=== PATIENT | female | born 1975 | race Caucasian/White ===

== ENCOUNTER → 2018-09-25 | Outpatient (CLI) | payer BC ==
[~2018-09-25] MED LIST: CYCL-97; LORA10TA2; TRM50T; ZOLP10TA
== END ==
LOC: CARD 08:41
PROVIDERS: ATTEND Family Medicine
DX: I10 Essential (primary) hypertension (principal)
CPT/HCPCS: 93306

== ENCOUNTER → 2018-09-25 | Outpatient (CLI) | payer BC ==
--- NOTE | 2018-09-25 09:38 | Diagnostic Imaging Report ---
INDICATION: Foreign body granuloma left arm 3 views of the left elbow show a 7 mm length needle fragment in the soft tissues anterior to the distal humerus. This appears be in the subcutaneous fat. On the oblique view, it is 13 mm from the skin surface. IMPRESSION: There is a small needle tip in the soft tissues on the ventral aspect of the left arm just above the elbow. Dictated by: Dictated on workstation # [id number]
== END ==
LOC: RAD 08:43
PROVIDERS: ATTEND Surgery
DX: M60.222 Foreign body granuloma of soft tissue, not elsewhere classified, left upper arm (principal); Z18.9 Retained foreign body fragments, unspecified material
CPT/HCPCS: 73080

== ENCOUNTER 2018-10-28 12:37 | Emergency (ER) | payer BC | END 2018-10-28 14:15 | disposition home or self-care (01) | LOC: ER 12:37 ==

== ENCOUNTER 2018-12-19 05:46 | Outpatient (CLI) | payer BC ==
[~2018-12-19] VITALS: Ht 172.7 cm; Wt 77.6 kg
[~2018-12-19 05:46] MED LIST changes: +CEFU250T80 PO
[2018-12-19] MEDS ORDERED: LISI1TAB8 PO (14:27)
[2018-12-19] MEDS ORDERED: CYCL10TA9 PO (14:27)
== END 2018-12-19 14:45 | disposition home or self-care (01) ==
LOC: PREOP 05:46
PROVIDERS: ATTEND Obstetrics & Gynecology
DX: Z01.818 Encounter for other preprocedural examination (principal)

== ENCOUNTER 2018-12-21 08:38 | Day surgery (SDC) | payer BC ==
[~2018-12-21] VITALS: Ht 172.7 cm; Wt 77.6 kg
[2018-12-21] VITALS (10 sets, daily range): BP systolic 103–127; BP diastolic 58–85
[~2018-12-21 08:38] MED LIST changes: +CYCL10TA9 PO; +LISI1TAB8 PO
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
--- OUTSIDE RECORDS SUMMARY | 2018-12-21 08:44 | XMS REPORT | Continuity of Care Document ---
Author Organization Unknown Address Unknown Allergies Active Description Code Type Severity Reaction Onset Reported/Identified Relationship to Patient Clinical Status Yes paliperidone [id number] Drug Allergy Mild N/A 10/28/2018 Yes Penicillins [id number] Drug Allergy Mild N/A 10/28/2018 Yes paliperidone [id number] Drug Allergy Severe SWELLING OF THE 12/19/2018 Yes Penicillins [id number] Drug Allergy Severe ANAPHYLAXIS 12/19/2018 Medications There is no data. 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, N 10/09/2018 SHEILA PATTEN, CALVIN B Ot 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.9 RETAINED FOREIGN BODY FRAGMENTS, UNSPECI 10/28/2018 NARCISO MURPHY APRN Ot N39.0 URINARY TRACT INFECTION, SITE NOT SPECIF 10/28/2018 NARCISO MURPHY APRN Ot R10.31 RIGHT LOWER QUADRANT PAIN 10/28/2018 NARCISO MURPHY APRN Ot Z80.0 FAMILY HISTORY OF MALIGNANT NEOPLASM OF 10/28/2018 NARCISO MURPHY APRN Ot Z88.8 ALLERGY STATUS TO [facility] DRUG/MEDS/BIOL SUB 11/02/2018 NARCISO MURPHY APRN Ot N39.0 URINARY TRACT INFECTION, SITE NOT SPECIF 11/02/2018 NARCISO MURPHY APRN Ot R10.31 RIGHT LOWER QUADRANT PAIN 11/02/2018 NARCISO MURPHY SALES SUPPORT REP Ot Z80.0 FAMILY HISTORY OF MALIGNANT NEOPLASM OF 11/02/2018 NARCISO MURPHY SALES SUPPORT REP Ot Z88.8 ALLERGY STATUS TO [facility] DRUG/MEDS/BIOL SUB 12/19/2018 CASTILLODAMIEN GARZA DO S Ot Z01.818 ENCOUNTER FOR OTHER PREPROCEDURAL EXAMIN 12/20/2018 CASTILLODAMIEN GARZA DO Ot Z01.818 ENCOUNTER FOR OTHER PREPROCEDURAL EXAMIN 12/20/2018 LUIS M CANTU, RBOOKE Lema Ot I10 ESSENTIAL (PRIMARY) HYPERTENSION 12/20/2018 CALVIN SOSA DO Ot 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 Results Test Result Range LIPID PANEL - 08/25/18 10:29 CHOLESTEROL, TOTAL 184 mg/dL <200 HDL CHOLESTEROL 55 mg/dL >50 TRIGLYCERIDES 66 mg/dL <150 LDL-CHOLESTEROL 114 mg/dL (calc) NRG CHOL/HDLC RATIO 3.3 (calc) <5.0 NON HDL CHOLESTEROL 129 mg/dL (calc) <130 CMP - 08/25/18 10:29 GLUCOSE 87 mg/dL 65-99 UREA NITROGEN (BUN) 13 mg/dL 7-25 CREATININE 0.67 mg/dL 0.50-1.10 eGFR NON-AFR. BOTSWANAN 109 mL/min/1.73m2 > OR=60 eGFR 127 mL/min/1.73m2 > OR=60 BUN/CREATININE RATIO NOT APPLICABLE (calc) 6-22 SODIUM 139 mmol/L 135-146 POTASSIUM 4.7 mmol/L 3.5-5.3 CHLORIDE 103 mmol/L 98-110 CARBON DIOXIDE 29 mmol/L 20-32 CALCIUM 9.9 mg/dL 8.6-10.2 PROTEIN, TOTAL 7.4 g/dL 6.1-8.1 ALBUMIN 5.0 g/dL 3.6-5.1 GLOBULIN 2.4 g/dL (calc) 1.9-3.7 ALBUMIN/GLOBULIN RATIO 2.1 (calc) 1.0-2.5 BILIRUBIN, TOTAL 1.1 mg/dL 0.2-1.2 ALKALINE PHOSPHATASE 55 U/L 33-115 AST 19 U/L 10-30 ALT 12 U/L 6-29 TSH - 08/25/18 10:29 TSH 1.47 mIU/L NR HEP C PCR QUANT (Graph)-APPROVAL REQUIRED - 08/25/18 10:29 HCV RNA, QUANTITATIVE REAL TIME PCR <15 NOT DETECTED IU/mL NOT DETECTED HCV RNA, QUANTITATIVE REAL TIME PCR <1.18 NOT DETECTED Log IU/mL NOT DETECTED BMP - 09/14/18 14:16 GLUCOSE 80 mg/dL 65-99 UREA NITROGEN (BUN) 14 mg/dL 7-25 CREATININE 0.74 mg/dL 0.50-1.10 eGFR NON-AFR. BOTSWANAN 101 mL/min/1.73m2 > OR=60 eGFR 117 mL/min/1.73m2 > OR=60 BUN/CREATININE RATIO NOT APPLICABLE (calc) 6-22 SODIUM 134 mmol/L 135-146 POTASSIUM 4.1 mmol/L 3.5-5.3 CHLORIDE 99 mmol/L 98-110 CARBON DIOXIDE 28 mmol/L 20-32 CALCIUM 9.9 mg/dL 8.6-10.2 CULTURE, GENITAL - 10/10/18 09:23 CULTURE, GENITAL SEE NOTE NR SUREPATH PAP AND HPV mRNA E6/E7 - 10/10/18 09:23 CLINICAL INFORMATION: [facility] LMP: 10/01/2018 NRG PREV. PAP: 2016 NRG PREV. BX: NRG SOURCE: Cervix NR STATEMENT OF ADEQUACY: NR INTERPRETATION/RESULT: NR ENTERTAINMENT PRODUCTION PROFESSIONAL: NR HPV mRNA E6/E7, SUREPATH VIAL Detected NOT DETECTED GENERAL CATEGORIZATION: NR COMMENT: NR PATHOLOGIST: NR COMMENT NR Complete urinalysis with reflex to culture - 10/28/18 12:42 Urine color determination YELLOW NRG Urine clarity determination CLEAR NR Urine pH measurement by test strip 6 5-9 Specific gravity of urine by test strip 1.020 1.016-1.022 Urine protein assay by test strip, semi-quantitative NEGATIVE NEGATIVE Urine glucose detection by automated test strip NEGATIVE NEGATIVE Erythrocytes detection in urine sediment by light microscopy NEGATIVE NEGATIVE Urine ketones detection by automated test strip NEGATIVE NEGATIVE Urine nitrite detection by test strip NEGATIVE NEGATIVE Urine total bilirubin detection by test strip NEGATIVE NEGATIVE Urine urobilinogen measurement by automated test strip (mass/volume) NORMAL NORMAL Urine leukocyte esterase detection by dipstick 3+ NEGATIVE Automated urine sediment erythrocyte count by microscopy (number/high power field) NONE NRG Automated urine sediment leukocyte count by microscopy (number/high power field) [HPF] NRG Bacteria detection in urine sediment by light microscopy MODERATE NRG Squamous epithelial cells detection in urine sediment by light microscopy 25-50 NRG Crystals detection in urine sediment by light microscopy NONE NRG Casts detection in urine sediment by light microscopy NONE NRG Mucus detection in urine sediment by light microscopy NEGATIVE NRG Complete urinalysis with reflex to culture YES NRG Bacterial urine culture - 10/28/18 12:42 Bacterial urine culture 3 OR MORE NRG COLONY COUNT >100,000/ML NRG FTX;REPORTABLE GRAM POSITIVE ISOLATES; SUGGESTING NRG FREE TEXT ENTRY 2 PROBABLE COLLECTION CONTAMINATION WITH NRG FREE TEXT ENTRY 3 SKIN TIA. NO SUSCEPTIBILITY PERFORMED. NRG Complete blood count (CBC) with automated white blood cell (WBC) differential - 10/28/18 12:52 Blood leukocytes automated count (number/volume) 6.8 10*3/uL 4.3-11.0 Blood erythrocytes automated count (number/volume) 4.13 10*6/uL 4.35-5.85 Venous blood hemoglobin measurement (mass/volume) 13.3 g/dL 11.5-16.0 Blood hematocrit (volume fraction) 38 % 35-52 Automated erythrocyte mean corpuscular volume 92 [foz_us] 80-99 Automated erythrocyte mean corpuscular hemoglobin (mass per erythrocyte) 32 pg 25-34 Automated erythrocyte mean corpuscular hemoglobin concentration measurement (mass/volume) 35 g/dL 32-36 Automated erythrocyte distribution width ratio 12.7 % 10.0- 14.5 Automated blood platelet count (count/volume) 237 10*3/uL 130-400 Automated blood platelet mean volume measurement 11.0 [foz_us] 7.4-10.4 Automated blood neutrophils/100 leukocytes 58 % 42-75 Automated blood lymphocytes/100 leukocytes 31 % 12-44 Blood monocytes/100 leukocytes 10 % 0-12 Automated blood eosinophils/100 leukocytes 1 % 0-10 Automated blood basophils/100 leukocytes 0 % 0-10 Blood neutrophils automated count (number/volume) 3.9 10*3 1.8-7.8 Blood lymphocytes automated count (number/volume) 2.1 10*3 1.0-4.0 Blood monocytes automated count (number/volume) 0.7 10*3 0.0- 1.0 Automated eosinophil count 0.1 10*3/uL 0.0-0.3 Automated blood basophil count (count/volume) 0.0 10*3/uL 0.0-0.1 Serum or plasma choriogonadotropin ( test) detection - 10/28/18 12:52 Serum or plasma choriogonadotropin ( test) detection NEGATIVE NEGATIVE Comprehensive metabolic panel - 10/28/18 12:52 Serum or plasma sodium measurement (moles/volume) 139 mmol/L 135-145 Serum or plasma potassium measurement (moles/volume) 3.8 mmol/L 3.6-5.0 Serum or plasma chloride measurement (moles/volume) 105 mmol/L 98-107 Carbon dioxide 23 mmol/L 21-32 Serum or plasma anion gap determination (moles/volume) 11 mmol/L 5-14 Serum or plasma urea nitrogen measurement (mass/volume) 12 mg/dL 7-18 Serum or plasma creatinine measurement (mass/volume) 0.80 mg/dL 0.60-1.30 Serum or plasma urea nitrogen/creatinine mass ratio 15 NRG Serum or plasma creatinine measurement with calculation of estimated glomerular filtration rate > NRG Serum or plasma glucose measurement (mass/volume) 68 mg/dL 70-105 Serum or plasma calcium measurement (mass/volume) 9.4 mg/dL 8.5-10.1 Serum or plasma total bilirubin measurement (mass/volume) 1.0 mg/dL 0.1-1.0 Serum or plasma alkaline phosphatase measurement (enzymatic activity/volume) 44 U/L 40-136 Serum or plasma aspartate aminotransferase measurement (enzymatic activity/volume) 21 U/L 5-34 Serum or plasma alanine aminotransferase measurement (enzymatic activity/volume) 14 U/L 0-55 Serum or plasma protein measurement (mass/volume) 7.3 g/dL 6.4-8.2 Serum or plasma albumin measurement (mass/volume) 4.5 g/dL 3.2-4.5 CALCIUM CORRECTED 9.0 mg/dL 8.5-10.1 TISSUE, 2 SPECIMENS - 11/07/18 15:02 A SOURCE NRG A GROSS DESCRIPTION NRG A DIAGNOSIS NRG CULTURE, URINE - 11/25/18 09:45 CULTURE, URINE, ROUTINE SEE NOTE NRG Encounters ACCT No. Visit Date/Time Discharge Status Pt. Type Provider Facility Loc./Unit Complaint [id number] 12/14/2018 14:30:00 12/14/2018 23:59:59 CLS Outpatient BROOKE ASENCIO [facility] [id number] 11/25/2018 08:15:00 Document Registration [id number] 11/07/2018 13:20:00 Document Registration [id number] 10/10/2018 09:00:00 Document Registration [id number] 09/14/2018 14:00:00 Document Registration [id number] 08/25/2018 09:40:00 Document Registration [id number] 12/19/2018 05:46:00 12/19/2018 14:45:00 DIS Outpatient DAMIEN PETERSON DO [facility] PREOP CIN3 [id number] 10/28/2018 12:37:00 10/28/2018 14:15:00 DIS Emergency NARCISO MURPHY APRN [facility] ER ABD PAIN [id number] 09/25/2018 08:43:00 09/25/2018 23:59:59 CLS Outpatient CALVIN SOSA DO [facility] RAD M60.222 [id number] 09/25/2018 08:41:00 09/25/2018 23:59:59 CLS Outpatient BROOKE ASENCIO MD [facility] CARD ESSENTIAL HYPERTENSION [id number] 12/21/2018 10:15:00 PEN Preadmit DAMIEN PETERSON DO [facility] SDC CIN3
[2018-12-21] MEDS ORDERED: LACTATED RINGERS 1,000 ML IV PRN (08:54)
[2018-12-21] MEDS ORDERED: D5 LR IV SOLUTION 1,000 ML IV SCH (09:08)
--- NOTE | 2018-12-21 09:08 | Progress Note-Pre Operative ---
Pre-Operative Progress Note H&P Reviewed The H&P was reviewed, patient examined and no changes noted. Date Seen by Provider: Dec 21, 2018 Time Seen by Provider: 09:00 Date H&P Reviewed: Dec 21, 2018 Time H&P Reviewed: 09:00 Pre-Operative Diagnosis: CIS with glandular involvement DAMIEN PETERSON DO Dec 21, 2018 09:08
[2018-12-21 09:10] LABS: AMPHETAMINE SCREEN, URINE NEGATIVE (NEGATIVE); BARBITURATE SCREEN URINE NEGATIVE (NEGATIVE); BENZODIAZEPINES SCREEN URINE POSITIVE (NEGATIVE); CANNABINOID SCREEN, URINE POSITIVE (NEGATIVE); COCAINE SCREEN URINE NEGATIVE (NEGATIVE); METHADONE STAT NEGATIVE (NEGATIVE); METHAMPHETAMINE SCREEN URINE S NEGATIVE (NEGATIVE); OPIATE SCREEN URINE POSITIVE (NEGATIVE); OXYCODONE STAT NEGATIVE (NEGATIVE); PROPOXYPHENE STAT NEGATIVE (NEGATIVE); TRICYCLIC ANTIDEPRESSANTS SCRE NEGATIVE (NEGATIVE)
--- NOTE | 2018-12-21 09:11 | Discharge Inst-Women's Service ---
Discharge Inst-Women's Serv Depart Medication/Instructions New, Converted or Re-Newed RX: RX on Chart Consults/Follow Up Additional Follow Up: Yes Orders/Referrals Dr. Peterson in 2 weeks Activity Activity: Activity as Tolerated Driving Instructions: No Driving for 1 Week NO SMOKING: NO SMOKING Nothing Inside Vagina: No Douching, No [place], No Tampons Diet Discharge Diet: No Restrictions Symptoms to Report to : Bleeding Excessive, Pain Increased, Fever Over 101 Degrees F, Vaginal Bleeding Increase, Questions/Concerns For Any Problems or Questions: Contact Your Physician Skin/Wound Care Infection Signs and Symptoms: Increased Redness, Foul Odor of Wound, Increased Drainage, Skin Itchy or Has a Rash, Increased Swelling, Temperature Above 101 F DAMIEN PETERSON DO Dec 21, 2018 09:11
[2018-12-21] MEDS ORDERED: IBUP-1773 PO (09:12)
[2018-12-21] MEDS ORDERED: ACHD5005 PO (09:12)
[2018-12-21] MEDS ORDERED: HYDROcodone/APAP 5 MG/325 MG (LORTAB) TAB PO PRN (09:15)
[2018-12-21] MEDS ORDERED: KETOROLAC 30 MG/ML VIAL IVP ONE (09:15)
[2018-12-21] MEDS ORDERED: ONDANSETRON 4 MG/2 ML (SDV) Z0FRAN IVP PRN ×2 (09:15→13:30)
[2018-12-21 09:21] LABS: BASOPHILS % (AUTO) 0 % (0-10); EOSINOPHILS # (AUTO) 0.1 10^3/uL (0.0-0.3); EOSINOPHILS % (AUTO) 1 % (0-10); HEMATOCRIT 42 % (35-52); HEMOGLOBIN 14.5 G/DL (11.5-16.0); LYMPHOCYTES # (AUTO) 2.1 X 10^3 (1.0-4.0); LYMPHOCYTES % (AUTO) 29 % (12-44); MEAN CORPUSCULAR HEMOGLOBIN 33 PG (25-34); MEAN CORPUSCULAR HGB CONC 34 G/DL (32-36); MEAN CORPUSCULAR VOLUME 95 FL (80-99); MEAN PLATELET VOLUME 10.7 FL (7.4-10.4); MONOCYTES # (AUTO) 0.7 X 10^3 (0.0-1.0); MONOCYTES % (AUTO) 10 % (0-12); NEUTROPHILS # (AUTO) 4.2 X 10^3 (1.8-7.8); NEUTROPHILS % (AUTO) 60 % (42-75); PLATELET COUNT 218 10^3/uL (130-400)
[2018-12-21] MEDS ORDERED: MIDAZOLAM 2 MG/2 ML (VERSED) VIAL ONE ×2 (10:04→10:11)
[2018-12-21] MEDS ORDERED: fentaNYL INJECTION 100 MCG/2 ML AMP ONE (10:11)
[2018-12-21] MEDS ORDERED: proPOfol 200 MG/20 ML (DIPRIVAN) VIAL IV ONE (10:12)
[2018-12-21] MEDS ORDERED: LIDOCAINE PF 2% 5 ML (XYLOCAINE) VIAL ONE (10:12)
[2018-12-21] MEDS ORDERED: SEVOFLURANE (ULTANE) 15 ML INHAL SOLN ONE ×3 (10:12→12:47)
[2018-12-21] MEDS ORDERED: ONDANSETRON 4 MG/2 ML (SDV) Z0FRAN ONE (10:12)
[2018-12-21] MEDS ORDERED: MIDAZOLAM 2 MG/2 ML (VERSED) VIAL IV ONE (10:15)
[2018-12-21] MEDS ORDERED: BUP/EPI 0.25% 1:200,000 (MARCAINE) 10 ML VIAL IJ ONE (11:57)
[2018-12-21] MEDS ORDERED: DEXAMETHASONE 10 MG/ML (DECADRON) 1 ML VIAL ONE (12:47)
[2018-12-21] MEDS ORDERED: fentaNYL INJECTION 100 MCG/2 ML AMP IVP ONE (13:30)
[2018-12-21] MEDS ORDERED: morphine INJ 10 MG/ML 1ML (SYR OR VIAL) IVP ONE (13:30)
[2018-12-21] MEDS ORDERED: KETOROLAC 30 MG/ML VIAL ONE (13:32)
--- NOTE | 2018-12-21 14:18 | Anesthesia-General Post-Op ---
General Patient Condition Mental Status/LOC: Same as Preop Cardiovascular: Satisfactory Nausea/Vomiting: Absent Respiratory: Satisfactory Pain: Controlled Complications: Absent Post Op Complications Complications None Follow Up Care/Instructions Patient Instructions None needed. Anesthesia/Patient Condition Patient Condition Patient is doing well, no complaints, stable vital signs, no apparent adverse anesthesia problems. No complications reported per nursing. JASKARAN CHACON CRNA Dec 21, 2018 14:18
--- NOTE | 2018-12-21 19:07 | OPERATIVE REPORT ---
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 PROCEDURE: D and C with cold knife conization. SURGEON: Damien Peterson DO ANESTHESIA: General endotracheal. ESTIMATED BLOOD LOSS: Minimal. URINE OUTPUT: 200 mL drained at the start of the procedure. FLUIDS: 150 mL lactated Ringer solution. FINDINGS: Acetowhite, opaque areas concerning for carcinoma or invasive carcinoma on the external cervical os near the transformation zone. A copious amount of endometrial tissue on curetting. SPECIMENS SENT: Endometrial curettings and cold knife conization biopsy of the cervix. INDICATIONS FOR PROCEDURE: This 43-year-old female was sent to me with this pathologic diagnoses. I discussed with the patient proceeding with further diagnostic procedures as they were needed prior to proceeding with more definitive procedures in excisional form of hysterectomy. She demonstrated understanding of this in the office. All the risks were reviewed with the patient preoperatively. After all of her questions were answered, consent was obtained, the patient was taken to the operating room. OPERATIVE REPORT IN DETAIL: Once in the operating room, general anesthesia was found to be adequate. She was placed in dorsal lithotomy position, prepped and draped in normal sterile fashion. Timeout was performed. The bladder was then drained using straight catheterization. I then placed a weighted speculum into the patient's vagina. Right angle retractor was used to visualize the cervix. It was grasped at 12 o'clock position using a long single tooth tenaculum. I then performed paracervical block at 3 and 9 o'clock positions using 0.25% Marcaine with 5 mL were injected into each site. After this was done, I also placed hemostatic ligating sutures at 3 and 9 o'clock position using 0 Vicryl suture to ensure excellent hemostasis during the procedure. Finally, I inject the tissue of the cervix in the deep stromal tissue of the cervix with lidocaine with epinephrine to promote vasoconstriction to limit bleeding during the procedure as well. A total of 20 more mL of this are used after which Lugol solution was applied to the cervix to identify the transformation zone. I began by making a circular incision with a knife around the transformation zone giving a 2 to 3 mm margin around the lateral borders. I then continued this incision in a cone-like fashion migrating inward to the endocervical canal using Wilder scissors, excising the entire cone biopsy in 1 piece, after which there was minimal bleeding noted. Ball cautery was performed of the excised area. A gentle curetting was performed using an endometrial curette and this tissue was sent as endometrial curettings. I then placed Sturmdorf stitches through my excised area using 2-0 Vicryl suture and astringent-hemostatic agent was applied to my vascular bed of my conization excision after which there was no active bleeding noted from any of my dissection planes. The patient tolerated the procedure well and sent to recovery area in stable condition. Lap and sponge counts were correct at the end of the procedure. Instrument counts correct as well. Job ID: [id number] DocumentID: [id number] Dictated Date: 12/21/2018 13:56:16 Marketing Budget Analyst Date: 12/21/2018 19:06:48 Dictated By: DAMIEN PETERSON DO
== END 2018-12-21 15:20 | disposition home or self-care (01) ==
LOC: SDC 08:38
PROVIDERS: ATTEND Obstetrics & Gynecology
DX: D06.9 Carcinoma in situ of cervix, unspecified (principal); I10 Essential (primary) hypertension; N30.20 Other chronic cystitis without hematuria; F32.9 Major depressive disorder, single episode, unspecified; F41.9 Anxiety disorder, unspecified; F17.210 Nicotine dependence, cigarettes, uncomplicated; Z88.0 Allergy status to penicillin; Z88.8 Allergy status to other drugs, medicaments and biological substances; Z79.899 Other long term (current) drug therapy; Z87.820 Personal history of traumatic brain injury; Z86.19 Personal history of other infectious and parasitic diseases; Z83.3 Family history of diabetes mellitus; Z82.49 Family history of ischemic heart disease and other diseases of the circulatory system; Z80.41 Family history of malignant neoplasm of ovary
CPT/HCPCS: 36415; 80306; 84703; 85025; 86850; 86900; 86901; 87081

== ENCOUNTER → 2019-01-02 | Outpatient (CLI) | payer BC ==
[~2019-01-02] MED LIST changes: +ACHD5005 PO; +IBUP-1773 PO
--- NOTE | 2019-01-02 12:06 | Diagnostic Imaging Report ---
PROCEDURE: MR imaging cervical spine without contrast. TECHNIQUE: Multiplanar, multisequence MR imaging of the cervical spine was performed without contrast. INDICATION: Neck pain. COMPARISON: None. FINDINGS: No acute fracture or dislocation is seen in the cervical spine. There is straightening of the cervical spine with small amount of focal kyphosis centered at the C4 level. There is partial fusion of the C2-C3 vertebral bodies and facets. The vertebral body heights and disc spaces are well maintained. The bone marrow signal is unremarkable. No focal osseous lesions. The craniocervical junction is maintained. The cervical spinal cord demonstrates normal intrinsic signal. No epidural collections are seen. Included brainstem and posterior fossa have normal appearance. Multilevel degenerative changes are seen in the cervical spine with posterior disc bulges and uncovertebral arthropathy. C2-C3: No significant spinal canal or foraminal stenosis. C3-C4: Posterior disc bulge and uncovertebral arthropathy results in mild spinal canal narrowing and mild to moderate right and no left foraminal narrowing. C4-C5: Posterior disc bulge and uncovertebral arthropathy results in mild spinal canal narrowing and moderate right and no left foraminal narrowing. C5-C6: Posterior disc bulge and uncovertebral arthropathy results in no spinal canal stenosis and mild bilateral foraminal stenosis. C6-C7: No significant spinal canal or foraminal stenosis. C7-T1: Right foraminal disc protrusion results in no significant spinal canal narrowing and moderate to severe right and no left foraminal stenosis. Soft tissues of neck are unremarkable. Impression: 1. No acute fracture or dislocation of the cervical spine. 2. Multilevel degenerative changes in the cervical spine, greatest at C7-T1 with right foraminal disc protrusion causing moderate to severe right foraminal stenosis. Dictated by: Dictated on workstation # [id number]
== END ==
LOC: RAD 10:17
PROVIDERS: ATTEND Nurse Practitioner
DX: S13.101A Dislocation of unspecified cervical vertebrae, initial encounter (principal); M47.813 Spondylosis without myelopathy or radiculopathy, cervicothoracic region; M48.02 Spinal stenosis, cervical region; M50.23 Other cervical disc displacement, cervicothoracic region
CPT/HCPCS: 72141

== ENCOUNTER 2019-01-18 10:22 | Outpatient (CLI) | payer BC ==
[~2019-01-18] VITALS: Ht 172.7 cm; Wt 78.5 kg
[2019-01-18 10:32] VITALS: BP 128/78
== END 2019-01-18 10:55 | disposition home or self-care (01) ==
LOC: PREOP 10:22
PROVIDERS: ATTEND Obstetrics & Gynecology
DX: Z01.818 Encounter for other preprocedural examination (principal)
CPT/HCPCS: 87081

== ENCOUNTER 2019-01-25 07:00 | Day surgery (SDC) | payer BC ==
[2019-01-25] VITALS (10 sets, daily range): BP systolic 97–147; BP diastolic 61–96
[~2019-01-25] VITALS: Ht 172.7 cm; Wt 78.5 kg
[2019-01-25] MEDS ORDERED: BUPIVACAINE 0.25% 30 ML (SENSORCAINE) VIAL ONE (07:06)
[2019-01-25] MEDS ORDERED: THROMBIN 5,000 UNIT (RECOTHROM) VIAL ONE (07:11)
[2019-01-25] MEDS ORDERED: LACTATED RINGERS 1,000 ML IV PRN (07:13)
[2019-01-25] MEDS ORDERED: LACTATED RINGERS 1,000 ML IV ONE (07:13)
[2019-01-25] MEDS ORDERED: ceFAZolin INJECTION 1,000 MG in WATER (STERILE) FOR INJECTION 10 ML IV ONE (07:15)
[2019-01-25] MEDS ORDERED: metroNIDAZOLE 500MG/100ML IVPB 100 ML IV ONE (07:15)
[2019-01-25] MEDS ORDERED: SEVOFLURANE (ULTANE) 15 ML INHAL SOLN ONE ×6 (07:31→10:29)
[2019-01-25] MEDS ORDERED: ONDANSETRON 4 MG/2 ML (SDV) Z0FRAN ONE ×2 (07:31→10:41)
[2019-01-25] MEDS ORDERED: proPOfol 200 MG/20 ML (DIPRIVAN) VIAL IV ONE (07:31)
[2019-01-25] MEDS ORDERED: fentaNYL INJECTION 100 MCG/2 ML AMP ONE ×2 (07:31→09:24)
[2019-01-25] MEDS ORDERED: LIDOCAINE PF 2% 5 ML (XYLOCAINE) VIAL ONE (07:31)
[2019-01-25] MEDS ORDERED: DEXAMETHASONE 10 MG/ML (DECADRON) 1 ML VIAL ONE (07:31)
[2019-01-25] MEDS ORDERED: ROCURONIUM 10 MG/ML 5 ML SYRINGE IV ONE ×2 (07:31→09:42)
[2019-01-25 07:37] LABS: BASOPHILS % (AUTO) 0 % (0-10); EOSINOPHILS # (AUTO) 0.1 10^3/uL (0.0-0.3); EOSINOPHILS % (AUTO) 1 % (0-10); HEMATOCRIT 41 % (35-52); HEMOGLOBIN 14.2 G/DL (11.5-16.0); LYMPHOCYTES # (AUTO) 2.2 X 10^3 (1.0-4.0); LYMPHOCYTES % (AUTO) 30 % (12-44); MEAN CORPUSCULAR HEMOGLOBIN 33 PG (25-34); MEAN CORPUSCULAR HGB CONC 35 G/DL (32-36); MEAN CORPUSCULAR VOLUME 95 FL (80-99); MEAN PLATELET VOLUME 10.6 FL (7.4-10.4); MONOCYTES # (AUTO) 0.6 X 10^3 (0.0-1.0); MONOCYTES % (AUTO) 8 % (0-12); NEUTROPHILS # (AUTO) 4.3 X 10^3 (1.8-7.8); NEUTROPHILS % (AUTO) 60 % (42-75); PLATELET COUNT 239 10^3/uL (130-400); RED CELL DISTRIBUTION WIDTH 12.9 % (10.0-14.5); WHITE BLOOD COUNT 7.1 10^3/uL (4.3-11.0)
[2019-01-25] MEDS ORDERED: MIDAZOLAM 2 MG/2 ML (VERSED) VIAL ONE (07:45)
[2019-01-25] MEDS ORDERED: MIDAZOLAM 2 MG/2 ML (VERSED) VIAL IV ONE (07:45)
--- NOTE | 2019-01-25 08:38 | Progress Note-Pre Operative ---
Pre-Operative Progress Note H&P Reviewed The H&P was reviewed, patient examined and no changes noted. Date Seen by Provider: Jan 25, 2019 Time Seen by Provider: 08:30 Date H&P Reviewed: Jan 25, 2019 Time H&P Reviewed: 08:35 Pre-Operative Diagnosis: CIN3 DAMIEN PETERSON DO Jan 25, 2019 08:38
[2019-01-25] MEDS ORDERED: LACTATED RINGERS 1,000 ML IV SCH (08:57)
[2019-01-25] MEDS ORDERED: ONDANSETRON 4 MG/2 ML (SDV) Z0FRAN IV PRN (09:00)
[2019-01-25] MEDS ORDERED: HYDROcodone/APAP 7.5 MG/325 MG (LORTAB, LORCET PLUS) TABLET PO PRN (09:00)
[2019-01-25] MEDS ORDERED: ZOLPIDEM 5 MG (AMBIEN) TAB PO PRN (09:00)
[2019-01-25] MEDS ORDERED: CHLORASEPTIC LOZENGE MM PRN (09:00)
[2019-01-25] MEDS ORDERED: DOCUSATE SODIUM 100 MG (COLACE) CAP PO PRN (09:00)
[2019-01-25] MEDS ORDERED: SIMETHICONE 80 MG (MYLICON) CHEW PO PRN (09:00)
[2019-01-25] MEDS ORDERED: ANTACID SUSP 30 ML UDC (MYLANTA) PO PRN (09:00)
[2019-01-25] MEDS ORDERED: KETOROLAC 30 MG/ML VIAL ONE (10:33)
[2019-01-25] MEDS ORDERED: morphine INJ 10 MG/ML 1ML (SYR OR VIAL) ONE (10:33)
--- NOTE | 2019-01-25 10:33 | Discharge Inst-Women's Service ---
Discharge Inst-Women's Serv Depart Medication/Instructions New, Converted or Re-Newed RX: RX on Chart Problems Reviewed?: Yes Consults/Follow Up Additional Follow Up: Yes Activity Activity: Activity as Tolerated Driving Instructions: No Driving for 1 Week NO SMOKING: NO SMOKING Nothing Inside Vagina: No Douching, No [place], No Tampons Diet Discharge Diet: No Restrictions Symptoms to Report to : Pain Increased, Fever Over 101 Degrees F, Vaginal Bleeding Increase For Any Problems or Questions: Contact Your Physician Skin/Wound Care Infection Signs and Symptoms: Increased Redness, Foul Odor of Wound, Increased Drainage, Skin Itchy or Has a Rash, Increased Swelling, Temperature Above 101 F Operative Area Clean and Dry: Keep Incision Clean/Dry Stitches/Joe/Dermabond: Dermabond Bathing Instructions: CODY Miranda APRN Jan 25, 2019 10:33
[2019-01-25] MEDS ORDERED: SIME80TA16 PO (10:36)
[2019-01-25] MEDS ORDERED: DOCU100C37 PO (10:36)
[2019-01-25] MEDS ORDERED: HYDR-34 PO (10:36)
[2019-01-25] MEDS ORDERED: IBUP-844 PO (10:36)
[2019-01-25] MEDS ORDERED: HYDROmorphone 2 MG/ML VIAL (DILAUDID) ONE (10:41)
[2019-01-25] MEDS: KETOROLAC 30 MG/ML VIAL IV PRN ×2 (10:44→17:10)
[2019-01-25] MEDS ORDERED: HYDROmorphone 2 MG/ML VIAL (DILAUDID) IV ONE (10:45)
[2019-01-25] MEDS ORDERED: morphine INJ 10 MG/ML 1ML (SYR OR VIAL) IVP ONE (10:45)
[2019-01-25] MEDS ORDERED: ONDANSETRON 4 MG/2 ML (SDV) Z0FRAN IVP PRN (10:45)
--- NOTE | 2019-01-25 11:04 | Anesthesia-General Post-Op ---
General Patient Condition Mental Status/LOC: Same as Preop Cardiovascular: Satisfactory Nausea/Vomiting: Absent Respiratory: Satisfactory Pain: Controlled Complications: Absent Post Op Complications Complications None Follow Up Care/Instructions Patient Instructions None needed. Anesthesia/Patient Condition Patient Condition Patient is doing well, no complaints, stable vital signs, no apparent adverse anesthesia problems. No complications reported per nursing. BETHANY CONNER CRNA Jan 25, 2019 11:04
[2019-01-25] MEDS ORDERED: HYDROcodone/APAP 7.5 MG/325 MG (LORTAB, LORCET PLUS) TABLET PO ONE (12:43)
[2019-01-25] MEDS ORDERED: HYDROmorphone 2 MG/ML VIAL (DILAUDID) IV NR (13:00)
--- NOTE | 2019-01-25 13:05 | NUR ---
Notified Dr Griffin pt moaning and crying out in pain. Pt refuses to take po pain med. "O" Dilaudid 1 mg IV.
--- NOTE | 2019-01-25 15:20 | OPERATIVE REPORT ---
DATE OF SERVICE: 01/25/2019 PREOPERATIVE DIAGNOSIS: A 43-year-old female with cervical intraepithelial neoplasia 3 of the cervix extending into the endocervical margin. POSTOPERATIVE DIAGNOSIS: A 43-year-old female with cervical intraepithelial neoplasia 3 of the cervix extending into the endocervical margin. PROCEDURE: Robotic-assisted total laparoscopic hysterectomy with bilateral salpingectomy. SURGEON: Gato Griffin DO SERVICES PROGRAM MANAGER: Sujey Morris DNP ANESTHESIA: General endotracheal. ESTIMATED BLOOD LOSS: Minimal. URINE OUTPUT: 200 mL clear at the end of the procedure. FLUIDS: 1800 mL lactated Ringer's solution. FINDINGS: Grossly normal external female genitalia with evidence on the cervix of recent cold knife conization. Grossly normal appearing bilateral ovaries with fallopian tubes, evidence of previous tubal ligation. SPECIMEN SENT: Uterus, cervix, bilateral fallopian tubes. INDICATION FOR PROCEDURE: This 43-year-old female was a consultation to me from Dr. Rocha at [facility] for findings of CHAUNCEY 3 on colposcopy biopsy. There was also involvement of endocervix and questionable intraglandular abnormal cells. Therefore, she underwent a cold knife conization with D and C. Pathology reviewed with the patient after this procedure was performed. We discussed the risk and benefit of hysterectomy versus ongoing surveillance which would be required with her current diagnosis. The patient does not desire any further childbearing, therefore hysterectomy was discussed. Risks of procedure were discussed with the patient in detail including risk of bleeding, infection, damage to any surrounding structures including, but not limited to bowel, bladder, ureter, kidneys, possible need for reoperation, postoperative complications, postoperative recovery timeframe, risk from anesthesia and even . Everything was discussed with the patient in detail, consent was obtained in the preoperative area and the patient was taken to the operating room. OPERATIVE REPORT IN DETAIL: Once in the operating room, general anesthesia was found to be adequate. He was placed in dorsal lithotomy position, prepped and draped in normal sterile fashion. Timeout was performed. Storm catheter was placed using sterile technique. A weighted-speculum was inserted into the patient's vagina. Right angle retractor was used to visualize the cervix, which was grasped at 12 o'clock position using a long Allis clamp and 0 Vicryl suture was then placed in the anterior lip of the cervix. Allis clamp was removed and the suture was then used as my retraction point. I then gently sound the uterine cavity, depth was found to be 8 cm. I selected an 8 cm María uterine manipulator tip and a 3.5 cm colpotomy ring. I advanced the manipulator tip into the uterus and deployed the balloon. I advanced the colpotomy ring around the vaginal fornix. Excellent bimanual manipulation was noted after doing this on bimanual exam. I then removed all the other instruments from the patient's vagina. I performed change of gloves and taken my attention to the abdomen where infraumbilically, I infiltrated this area using 0.25% Marcaine. I made an 8 mm incision and directed a Veress needle through the incision until intraperitoneal placement was confirmed using saline drop test and opening pressure of 4 mmHg was noted. I proceeded to maximum pressure of 15 mmHg, at which point I removed the Veress needle and introduced an 8 mm blunt da Carlene camera trocar. Once this was in place, I am able to confirm intraperitoneal placement using da Carlene laparoscope. I had the patient placed in steep Trendelenburg and all of my anatomy was as listed in my findings above. I placed two lateral trocars using both 8 mm trocars approximately 8 cm lateral to my infraumbilical trocars. Both of these were placed under direct visualization of the laparoscope in similar fashion. Once these were in place, I bring in the da Carlene robot and docked in appropriate fashion, placing the da Carlene vessel sealer in the left hand and monopolar mainor in the right hand, I took my place at the da Carlene operative console and performed the following dissection bilaterally. Starting at the uteroovarian ligament, I bipolar cauterized and transected using the vessel sealer. I then created a window in the mesosalpinx and took this laterally down the mesosalpinx amputating the fallopian tube from its surrounding blood supply. I then grasped the round ligament, bipolar cauterized and transected using the vessel sealer. I then grasped the entire broad ligament, bipolar cauterized and transected using vessel sealer. I the anterior and posterior leaflets of the broad ligament. The anterior leaflet dissection was taken around the anterior vaginal fornix and posterior leaflet was taken around the posterior vaginal fornix. This allows me to skeletonize the uterine vessels laterally, which I then bipolar cauterized and transected using vessel sealer. I then created a colpotomy at 12 o'clock position using monopolar mainor and took this circumferentially around the vaginal cuff amputating the cervix away from the vagina. The entire specimen was then removed through the vagina. I then proceeded with closing the vaginal cuff and the lateral vaginal apices using 2-0 Vicryl suture in a xdbzrh-xh-qmbth fashion, colposuspending them to the uterosacral ligaments. I then closed the remainder of the vaginal cuff using 2-0 V-Loc in a running fashion after which there was no active bleeding noted from any of my dissection planes. I then removed the robotic instruments and undocked the da Carlene robot and proceeded with the remainder of the case laparoscopically. I copiously irrigated the pelvis using normal saline. Once again, no active bleeding noted from any of my dissection planes. The dissection planes were then all covered with FloSeal hemostatic agent to ensure postoperative hemostasis. I then had the patient taken out of steep Trendelenburg where I released insufflation and removed the lateral trocars under direct visualization and laparoscope. The infraumbilical trocar was left in place to release the remainder of the insufflation and to introduce 10 mL of 0.25% Marcaine for postoperative peritoneal pain management. I then removed this trocar as well and closed the skin using 4-0 Monocryl in interrupted subcuticular stitches. Dermabond was applied to the incisions and Band-Aids were placed over the incisions as well. Storm catheter was left in place. The patient tolerated the procedure well and was taken to recovery area in stable condition. Lap and sponge counts were correct at the end of the procedure. Instrument counts were correct as well. Two grams of Ancef and 500 mg of Flagyl were given preoperatively for infection prophylaxis. Job ID: [id number] DocumentID: [id number] Dictated Date: 01/25/2019 10:45:46 Advisory Intern Date: 01/25/2019 15:19:47 Dictated By: GATO GRIFFIN DO
[2019-01-25] MEDS ORDERED: NICO-587 TD (16:26)
--- NOTE | 2019-01-25 17:30 | NUR ---
YULY RIZZO demonstrates understanding of discharge instructions and accurately returns instructions upon questioning. Copy of Post-Discharge Instructions and Medication Discharge Instructions given to patient. YULY RIZZO is able to manage continuing needs after discharge. Patients belongings returned to patient. Skin dry and intact; no breakdown noted. Patient discharged from 3305-1 on at 1730 . YULY RIZZO left floor via wheel chair, accompanied by women services staff.
[2019-01-26] MEDS ORDERED: IBUPROFEN 600 MG (MOTRIN) TAB PO PRN (01:45)
--- NOTE | 2019-01-26 09:07 | Anesthesia-Regional Post-Op ---
Regional Patient Condition Mental Status: Alert, Oriented x3 Circulation: Same as Pre-Op Headache: Absent Sensation: Full Recovery Motor Block: Absent Post Op Complications Complications None Follow Up Care/Instructions Patient Instructions None needed. Anesthesia/Patient Condition Patient is doing well, no complaints, stable vital signs, no apparent adverse anesthesia problems. No complications reported per nursing. KULDEEP FAJARDO CRNA Jan 26, 2019 09:07
== END 2019-01-25 17:30 | disposition home or self-care (01) ==
LOC: SDC 07:00 → WS 07:00 → LDRP 11:30 → SDC 11:30 → WS 11:30 → SDC 17:30
PROVIDERS: ATTEND Obstetrics & Gynecology
DX: D25.1 Intramural leiomyoma of uterus (principal); N80.0 Endometriosis of uterus; N83.8 Other noninflammatory disorders of ovary, fallopian tube and broad ligament; I10 Essential (primary) hypertension; F17.210 Nicotine dependence, cigarettes, uncomplicated; F41.9 Anxiety disorder, unspecified; F32.9 Major depressive disorder, single episode, unspecified; Z88.0 Allergy status to penicillin; Z79.899 Other long term (current) drug therapy
CPT/HCPCS: 36415; 84703; 85025; 86850; 86900; 86901; 94664

== ENCOUNTER → 2019-06-18 | Outpatient (CLI) | payer BC ==
[~2019-06-18] MED LIST changes: +DOCU100C37 PO; +HYDR-34 PO; +IBUP-844 PO; +LISI1TAB25 PO; -LISI1TAB8 PO; +NICO-587 TD; +SIME80TA16 PO
--- NOTE | 2019-06-18 14:16 | Diagnostic Imaging Report ---
INDICATION: Palpable lump right breast. COMPARISON: No prior mammograms are available for comparison. TECHNIQUE: 2D and 3D bilateral diagnostic mammography was performed with CAD. FINDINGS: Scattered fibroglandular densities are identified bilaterally. A BB marker was placed at the area of palpable abnormality in the upper outer retroareolar right breast. No underlying abnormality is seen. No mass or malignant appearing microcalcifications are identified. The axillae are unremarkable. IMPRESSION: No mammographic features suspicious for malignancy are identified. Even so, directed sonographic interrogation of the area of palpable abnormality is recommended and will be performed today. ACR BI-RADS Category 0: Incomplete. (Needs additional imaging evaluation). Result letter will be mailed to the patient. Note: At least 10% of breast cancer is not imaged by mammography. Dictated by: Dictated on workstation # [id number]
--- NOTE | 2019-06-18 15:22 | Diagnostic Imaging Report ---
INDICATION: Palpable lump right breast. COMPARISON: Correlation is made with the diagnostic mammogram of earlier this same day. FINDINGS: Sonographic interrogation of the area of lump in the right breast was performed. No sonographic abnormality is seen. No solid or cystic mass is detected. IMPRESSION: No sonographic abnormality is detected. Continued close clinical and self breast exams are recommended to confirm stability of the palpable abnormality. ACR BI-RADS Category 1: Negative. Dictated by: Dictated on workstation # [id number]
== END ==
LOC: RAD 13:38
PROVIDERS: ATTEND Nurse Practitioner Women's Health
DX: N63.10 Unspecified lump in the right breast, unspecified quadrant (principal)
CPT/HCPCS: 77066

== ENCOUNTER 2020-05-01 14:44 | Emergency (ER) | payer BC ==
[~2020-05-01] VITALS: Ht 172.7 cm; Wt 72.7 kg
[~2020-05-01 14:44] MED LIST changes: -LISI1TAB25 PO; +LISI1TAB46 PO
[2020-05-01] MEDS ORDERED: RX-CYCLOBENZAPRINE 10 MG (FLEXERIL) TAB PPK#3 PO STA (15:20)
--- NOTE | 2020-05-01 15:24 | ED Neck-Back Pain/Injury ---
General Chief Complaint: Head/Cervical Problems Stated Complaint: NECK PAIN Source of Information: Patient Exam Limitations: No Limitations History of Present Illness Date Seen by Provider: May 01, 2020 Time Seen by Provider: 15:23 Initial Comments To ER with c/o midline neck pain chronic in nature worse for a few days. No fevers or chills. Would like a toradol shot and some muscle relaxers. Location: C-Spine Timing/Duration: Getting Worse Severity: Moderate Method of Injury: Unknown Associated Symptoms: denies symptoms Allergies and Home Medications Allergies Coded Allergies: Penicillins (Unverified Allergy, Severe, ANAPHYLAXIS, 12/19/18) paliperidone (Unverified Allergy, Severe, SWELLING OF THE BRAIN, 12/19/18) Home Medications Cyclobenzaprine HCl 10 Mg Tablet, 10 MG PO TID PRN for SPASMS, (Reported) Docusate Sodium 100 Mg Capsule, 100 MG PO BID PRN for CONSTIPATION-1ST LINE Prescribed by: CODY HARDEN on 01/25/19 1036 Hydrocodone Bit/Acetaminophen 1 Ea Tablet, 2 EA PO Q6H PRN for Pain-See Instructions Prescribed by: CODY HARDEN on 01/25/19 1036 Ibuprofen 600 Mg Tablet, 600 MG PO Q6H PRN for PAIN-MODERATE Prescribed by: CODY HARDEN on 01/25/19 1036 Lisinopril/Hydrochlorothiazide 1 Each Tablet, 1 EACH PO DAILY, (Reported) Methocarbamol 750 Mg Tablet, 750 MG PO Q4H PRN for PAIN-MODERATE (5-7) Prescribed by: NARCISO MURPHY on 05/01/20 1529 Nicotine 1 Each Patch.td24, 14 MG TD DAILY Prescribed by: CODY HARDEN on 01/25/19 1626 Prednisone 20 Mg Tab, 40 MG PO DAILY Prescribed by: NARCISO MURPHY on 05/01/20 1529 Simethicone 80 Mg Tab.chew, 40 MG PO TID PRN for INDIGESTION 2ND LINE Prescribed by: CODY HARDEN on 01/25/19 1036 Patient Home Medication List Home Medication List Reviewed: Yes Review of Systems Constitutional: see HPI EENTM: see HPI Respiratory: no symptoms reported Cardiovascular: no symptoms reported Genitourinary: no symptoms reported Musculoskeletal: see HPI, neck pain Skin: no symptoms reported Psychiatric/Neurological: No Symptoms Reported Past Srfolzp-Cspofk-Wehyxl Hx Patient Social History 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 Type Used: Cigarettes 2nd Hand Smoke Exposure: No Recent Hopitalizations: No Seasonal Allergies Seasonal Allergies: No Past Medical History Surgeries: Yes (D&C, cold knife conization) Tonsillectomy, Tubal Ligation Respiratory: No Cardiac: Yes Hypertension Neurological: Yes (HX encephalitis, 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) Seizure Disorder, Traumatic Brain Injury Female Reproductive Disorders: Menstrual Problems 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 0.0oz. [id number]; 26.3 BMI Method:Stated General Appearance: No Apparent Distress, WD/WN Neck: Full Range of Motion, Normal Inspection Respiratory: No Accessory Muscle Use, No Respiratory Distress Gastrointestinal: Normal Bowel Sounds, Non Tender, Soft Extremity: Normal Capillary Refill, Normal Inspection Neurologic/Psychiatric: Alert, Oriented x3 Skin: Normal Color, Warm/Dry Progress/Results/Core Measures Results/Orders My Orders Orders - NARCISO MURPHY APRN Ketorolac Injection (Toradol Injection) (05/01/20 15:30) Rx-Cyclobenzaprine Tablet (Rx-Flexeril T (05/01/20 15:20) Prednisone Tablet (Deltasone Tablet) (05/01/20 15:30) Medications Given in ED Current Medications Medications Dose Ordered Sig/Dipak Route Start Time Stop Time Status Last Admin Dose Admin Ketorolac Tromethamine 60 mg ONCE ONCE IM 05/01/20 15:30 05/01/20 15:31 DC 05/01/20 15:41 60 MG Prednisone 40 mg ONCE ONCE PO 05/01/20 15:30 05/01/20 15:31 DC 05/01/20 15:41 40 MG Departure Impression Primary Impression: Cervicalgia Disposition: 01 HOME, SELF-CARE Condition: Stable Departure-Patient Inst. Decision time for Depature: 15:27 Referrals: BROOKE ASENCIO MD (PCP/Family) Primary Care Physician Patient Instructions: Chronic Neck Pain (DC) Add. Discharge Instructions: 1. Return to ER for any concerns All discharge instructions reviewed with patient and/or family. Voiced understanding. Scripts Lidocaine (Lidocaine 5% Patch) 1 Each Adh..patch 1 EACH TP Q12H PRN for Neuropathic pain MDD 2, #10 PATCH 2 patches max for 12 hours, then 12 hours patch-free period. Prov: NARCISO MURPHY APRN 05/01/20 Methocarbamol (Robaxin-750) 750 Mg Tablet 750 MG PO Q4H PRN for PAIN-MODERATE (5-7), #14 TAB Prov: NARCISO MURPHY APRN 05/01/20 Prednisone (Prednisone) 20 Mg Tab 40 MG PO DAILY, #6 TAB 0 Refills Prov: NARCISO MURPHY APRN 05/01/20 NARCISO MURPHY APRN May 01, 2020 15:24
[2020-05-01] MEDS ORDERED: METH-313 PO (15:29)
[2020-05-01] MEDS ORDERED: PRD20T PO (15:29)
[2020-05-01] MEDS ORDERED: predniSONE 20 MG TAB PO ONE (15:30)
[2020-05-01] MEDS ORDERED: KETOROLAC 60 MG/2 ML VIAL IM ONE (15:30)
[2020-05-01] MEDS ORDERED: LIDO700A45 TP (15:46)
[2020-05-01 15:52] VITALS: BP 138/111
== END 2020-05-01 15:57 | disposition home or self-care (01) ==
LOC: EDUNIT# 14:44 → ER 14:46
DX: M54.2 Cervicalgia (principal); I10 Essential (primary) hypertension; Z82.49 Family history of ischemic heart disease and other diseases of the circulatory system; Z88.0 Allergy status to penicillin; Z88.8 Allergy status to other drugs, medicaments and biological substances; Z87.820 Personal history of traumatic brain injury; Z79.52 Long term (current) use of systemic steroids
CPT/HCPCS: 99284

== ENCOUNTER 2020-11-17 00:22 | Emergency (ER) | payer BC ==
[~2020-11-17] VITALS: Ht 177 cm; Wt 75.0 kg
[~2020-11-17 00:22] MED LIST changes: +LIDO700A45 TP; +METH-313 PO; +PRD20T PO
[2020-11-17] MEDS ORDERED: PRD20T PO (01:07)
--- NOTE | 2020-11-17 01:07 | ED Upper Extremity ---
General Chief Complaint: Upper Extremity Stated Complaint: R CLAVICLE INJ/PAIN Nursing Triage Note: pt states hx of neck pain, suppose to have surgery last april unable for personal reasons. patient states woke up this morning with discomfort. states she has tried heat and ibprofen in the past. patient unable to sit still. making jerky movements, denies drug use at this time. does state she has a past his of drug use. complaint of rt sided neck/shoulder pain. pt thinks it is out of place, but no deformity noted. patient able to move extremities without difficulty. Nursing Sepsis Screen: No Definite Risk Source: patient (VERY DIFFICULT HISTORIAN--GIVES MUCH CONVOLUTED INFORMATION, AND SPEECH IS RAPID AND DIFFICULT TO UNDERSTAND AT TIMES. UNABLE TO KEEP ON SUBJECT. APPEARS TO BE UNDER THE INFLUNCE OF SOME SUBSTANCE/S) History of Present Illness Date Seen by Provider: Nov 17, 2020 Time Seen by Provider: 00:40 Initial Comments PT ARRIVES VIA POV PT HAS CHRONIC RIGHT SHOULDER PAIN AND NECK PAIN STATES SHE "WAS SUPPOSED TO HAVE SURGERY IN MAY OF 2019" ON HER NECK, BUT NEVER HAD IT DONE PT HAS BEEN INCARCERATED, MOST RECENTLY IN AUGUST OF THIS YEAR, AND JUST GOT OUT 2 DAYS AGO DENIES ANY INJURY, STATES SHE "ROLLED OVER IN HER SLEEP" AND WOKE UP AT 2330 WITH RIGHT SHOULDER PAIN--STATES "I DISLOCATED IT" ( SHE IS FREELY FLAILING BOTH OF HER ARMS ALL OVER) ALSO C/O PAIN TO RIGHT SIDE OF NECK , WHICH IS ALSO CHRONIC DENIES ANY PARESTHESIAS OR MOTOR DEFICITS HAS NOT TAKEN ANYTHING FOR PAIN TODAY HAS NOT APPLIED HEAT OR ICE TODAY PCP: [facility], DR. ASENCIO--HAS AN APPOINTMENT THIS TUESDAY Allergies and Home Medications Allergies Coded Allergies: Penicillins (Unverified Allergy, Severe, ANAPHYLAXIS, 12/19/18) paliperidone (Unverified Allergy, Severe, SWELLING OF THE BRAIN, 12/19/18) Home Medications Cyclobenzaprine HCl 10 Mg Tablet, 10 MG PO TID PRN for SPASMS, (Reported) Docusate Sodium 100 Mg Capsule, 100 MG PO BID PRN for CONSTIPATION-1ST LINE Prescribed by: CODY HARDEN on 01/25/19 1036 Hydrocodone Bit/Acetaminophen 1 Ea Tablet, 2 EA PO Q6H PRN for Pain-See Instructions Prescribed by: CODY HARDEN on 01/25/19 1036 Ibuprofen 600 Mg Tablet, 600 MG PO Q6H PRN for PAIN-MODERATE Prescribed by: CODY HARDEN on 01/25/19 1036 Lidocaine 1 Each Adh..patch, 1 EACH TP Q12H PRN for Neuropathic pain 2 patches max for 12 hours, then 12 hours patch-free period. Prescribed by: NARCISO MURPHY on 05/01/20 1546 Lisinopril/Hydrochlorothiazide 1 Each Tablet, 1 EACH PO DAILY, (Reported) Methocarbamol 750 Mg Tablet, 750 MG PO Q4H PRN for PAIN-MODERATE (5-7) Prescribed by: NARCISO MURPHY on 05/01/20 1529 Nicotine 1 Each Patch.td24, 14 MG TD DAILY Prescribed by: CODY HARDEN on 01/25/19 1626 Prednisone 20 Mg Tab, 40 MG PO DAILY Prescribed by: NARCISO MURPHY on 05/01/20 1529 Prednisone 20 Mg Tab, 40 MG PO DAILY Prescribed by: RAMON MG on 11/17/20 0107 Simethicone 80 Mg Tab.chew, 40 MG PO TID PRN for INDIGESTION 2ND LINE Prescribed by: CODY HARDEN on 01/25/19 1036 Patient Home Medication List Home Medication List Reviewed: Yes Review of Systems Constitutional: no symptoms reported Musculoskeletal: see HPI Psychiatric/Neurological: See HPI Past Tpzusjs-Lisgio-Wgmzlm Hx Past Med/Social Hx: Reviewed and Corrections made Patient Social History Drug of Choice: METH, THC Smoking Status: Former Smoker (QUIT 2002) Type Used: Cigarettes 2nd Hand Smoke Exposure: No Recent Infectious Disease Expo: No Recent Hopitalizations: No Substance type: Methamphetamine Seasonal Allergies Seasonal Allergies: No Past Medical History Surgeries: Yes (D&C, cold knife conization) Hysterectomy, Tonsillectomy, Tubal Ligation Respiratory: No Cardiac: Yes Hypertension Neurological: Yes (HX encephalitis, 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) Seizure Disorder, Traumatic Brain Injury Female Reproductive Disorders: Menstrual Problems JAVA ANALYST History: Hysterectomy, Tubal Ligation Sexually Transmitted Disease: No HIV/AIDS: No Genitourinary: Yes Bladder Infection, UTI-Chronic Gastrointestinal: Yes Chronic Constipation Musculoskeletal: Yes (CHRONIC NECK AND RIGHT SHOULDER PAIN ) Endocrine: No HEENT: No (EDENTULOUS) Loss of Vision: Denies Hearing Impairment: Denies Cancer: No Psychosocial: Yes (SUBSTANCE ABUSE) Anxiety Integumentary: No Blood Disorders: No Adverse Reaction/Blood Tranf: No (N/A) Family Medical History Alcoholism 19 FATHER 19 MOTHER G8 BROTHER Drug abuse 19 FATHER Hypertension 19 FATHER Myocardial infarction 19 FATHER Physical Exam Vital Signs Vital Signs - First Documented 11/17/20 00:38 Temp 36.9 Pulse 97 Resp 18 B/P (MAP) 184/107 (132) Pulse Ox 98 O2 Delivery Room Air Capillary Refill : Less Than 3 Seconds Height, Weight, BMI Height: 5'8.00" Weight: 173lbs. 0.0oz. 78.843928ng; 23.00 BMI Method:Stated General Appearance: no apparent distress, other (PT WITH CONSTANT MOVEMENTS OF ENTIRE BODY, AND MOUTH. FLAILING ARMS ALL OVER. SPEECH IS VERY RAPID AND ERRATIC AND DIFFICULT TO UNDERSTAND AT TIMES. PT APPEARS TO BE UNDER THE INFLUENCE OF SOME SUBSTANCE/S. ) Neck: other (MILD TENDERNESS TO RIGHT TRAPEZIUS MUSCLE . NO BONY TENDERNESS OF NECK, FREELY MOVING NECK WITHOUT DIFFICULTY) Cardiovascular: normal peripheral pulses, regular rate, rhythm, no murmur Respiratory: chest non-tender, normal breath sounds Gastrointestinal: soft Back: no CVA tenderness, no vertebral tenderness Shoulder: no evidence of injury, normal ROM, bone tenderness (STATES HER SHOULDER HURTS, BUT PT IS FLAILING ARM AROUND WITHOUT ANY DIFFICULTY, UNABLE TO ELICIT TENDERNESS TO PALPATION. ); No deformity, No ecchymosis, No swelling Elbow/Forearm: normal inspection Wrist: Yes normal inspection Hand: normal inspection Neurologic/Tendon: normal sensation, normal motor functions, normal tendon functions Neurologic/Psychiatric: no motor/sensory deficits, alert, other ( ABOVE) Skin: normal color, warm/dry, tattoos/piercings (TATTOOS) Progress/Results/Core Measures Results/Orders My Orders Orders - RAMON MG DO Shoulder, Right, 3 Views (11/17/20 00:47) Prednisone Tablet (Deltasone Tablet) (11/17/20 01:15) Medications Given in ED Current Medications Medications Dose Ordered Sig/Dipak Route Start Time Stop Time Status Last Admin Dose Admin Prednisone 40 mg ONCE ONCE PO 11/17/20 01:15 11/17/20 01:16 DC 11/17/20 01:30 40 MG Vital Signs/I&O 11/17/20 11/17/20 00:38 01:33 Temp 36.9 36.9 Pulse 97 97 Resp 18 18 B/P (MAP) 184/107 (132) 184/107 (132) Pulse Ox 98 98 O2 Delivery Room Air Room Air Blood Pressure Mean: 132 Progress Progress Note : Progress Note PT LAYING ON RIGHT SIDE, DIRECTLY ON RIGHT SHOULDER WITHOUT ANY EVIDENCE OF PAIN WHATSOEVER PT REQUESTS PREDNISONE/STEROIDS--STATES "THAT'S THE ONLY THING THAT HAS EVER HE LPED THIS" Diagnostic Imaging Comments XRAYS RIGHT SHOULDER--NO ACUTE PROCESS, PENDING RADIOLOGIST REVIEW Reviewed: Reviewed by Me Departure Impression Primary Impression: Chronic right shoulder pain Disposition: HOME, SELF-CARE Condition: Stable Departure-Patient Inst. Decision time for Depature: 01:05 Referrals: BROOKE ASENCIO MD (PCP/Family) Primary Care Physician Patient Instructions: Shoulder Pain (DC) Add. Discharge Instructions: ICE TO AREA AT 20 MINUTE INTERVALS FOLLOW UP WITH DR. ASENCIO SCHEDULED All discharge instructions reviewed with patient and/or family. Voiced understanding. Scripts Prednisone (Prednisone) 20 Mg Tab 40 MG PO DAILY, #6 TAB 0 Refills Prov: RAMON MG DO 11/17/20 RAMON MG DO Nov 17, 2020 01:07
[2020-11-17] MEDS ORDERED: predniSONE 20 MG TAB PO ONE (01:15)
[2020-11-17 01:33] VITALS: BP 184/107
--- NOTE | 2020-11-17 06:41 | Diagnostic Imaging Report ---
INDICATION: shoulder pain TECHNIQUE: Three views of the right shoulder CORRELATION STUDY: None FINDINGS: Examination is markedly compromised owing to the oaodj-wn-bids and positioning of the patient. Given significant limitations, definitive acute fracture dislocation of the shoulder not suggested. Hypertrophic changes at the acromioclavicular joint with spur like formation. Visualized right lung field clear. IMPRESSION: 1. Limited but generally unremarkable examination right shoulder. No evidence for acute fracture or dislocation. Dictated by: Dictated on workstation # [id number]
== END 2020-11-17 01:35 | disposition home or self-care (01) ==
LOC: EDUNIT# 00:22 → ER 00:24
DX: G89.29 Other chronic pain (principal); M25.511 Pain in right shoulder; I10 Essential (primary) hypertension; Z87.820 Personal history of traumatic brain injury; Z87.891 Personal history of nicotine dependence; Z79.52 Long term (current) use of systemic steroids; Z79.899 Other long term (current) drug therapy; Z79.891 Long term (current) use of opiate analgesic
CPT/HCPCS: 73030

== ENCOUNTER 2021-03-10 11:17 | Emergency (ER) | payer SELFPAY ==
[~2021-03-10] VITALS: Ht 175 cm; Wt 75.9 kg
[2021-03-10] MEDS ORDERED: KETOROLAC 60 MG/2 ML VIAL IM STA (11:56)
[2021-03-10] MEDS ORDERED: ORPHENADRINE 60 MG/2 ML (NORFLEX) AMP (ED ONLY) IM STA (11:56)
--- NOTE | 2021-03-10 12:29 | ED Lower Extremity ---
General Chief Complaint: Lower Extremity Stated Complaint: L LEG PAIN Nursing Triage Note: TO ED PER W/C WITH L LEG PAIN ONSET 3 DAYS AGO NO INJURY. DISCOLORATION TO R & L KNEES. DENIES INJURY History of Present Illness Date Seen by Provider: Mar 10, 2021 Time Seen by Provider: 11:35 Initial Comments 45 year old female presents for 3-7 day history of left lateral leg pain, burning/tingling in left leg. She reports it initally started with ecchymosis in her ant tibia, that resolved. Patient denies any injuries, falls or trauma to her lower extremities. She has had no previous surgeries to her low back or lower extremities. She is ambulating with a cane but has increased pain in her left leg upon standing. She has been taking ibuprofen 800 mg as needed and Flexeril 10 to 20 mg as needed. She denies taking either of these today. She has had previous MRIs on her cervical spine but no previous studies of her lumbar spine. Onset: other (3-4 days, possibly last week, patient history changes. ) Pain/Injury Location: left leg Method of Injury: unknown Modifying Factors: Improves With Rest Allergies and Home Medications Allergies Coded Allergies: Penicillins (Unverified Allergy, Severe, ANAPHYLAXIS, 12/19/18) paliperidone (Unverified Allergy, Severe, SWELLING OF THE BRAIN, 12/19/18) Patient Home Medication List Home Medication List Reviewed: Yes Cyclobenzaprine HCl (Cyclobenzaprine HCl) 10 Mg Tablet, 10 MG PO TID PRN for SPASMS, (Reported) Entered as Reported by: ADEEL RAE on 12/19/18 1427 Cyclobenzaprine HCl (Cyclobenzaprine HCl) 10 Mg Tablet, 10 MG PO Q8H PRN for SPASMS Prescribed by: LEE DA SILVA on 03/10/21 1243 Docusate Sodium (Docusate Sodium) 100 Mg Capsule, 100 MG PO BID PRN for CONSTIPATION-1ST LINE Prescribed by: CODY HARDEN on 01/25/19 1036 Hydrocodone Bit/Acetaminophen (Lortab 7.5 Mg Tablet) 1 Ea Tablet, 2 EA PO Q6H PRN for Pain-See Instructions Prescribed by: CODY HARDEN on 01/25/19 1036 Ibuprofen (Ibu) 600 Mg Tablet, 600 MG PO Q6H PRN for PAIN-MODERATE Prescribed by: CODY HARDEN on 01/25/19 1036 Lidocaine (Lidocaine 5% Patch) 1 Each Adh..patch, 1 EACH TP Q12H PRN for Neuropathic pain Prescribed by: NARCISO MURPHY on 05/01/20 1546 Lisinopril/Hydrochlorothiazide (Lisinopril-Hctz 20-12.5 mg Tab) 1 Each Tablet, 1 EACH PO DAILY, (Reported) Entered as Reported by: ADEEL RAE on 12/19/18 1427 Methocarbamol (Robaxin-750) 750 Mg Tablet, 750 MG PO Q4H PRN for PAIN-MODERATE (5-7) Prescribed by: NARCISO MURPHY on 05/01/20 1529 Nicotine (Nicotine Patch) 1 Each Patch.td24, 14 MG TD DAILY Prescribed by: CODY HARDEN on 01/25/19 1626 Prednisone (Prednisone) 20 Mg Tab, 40 MG PO DAILY Prescribed by: NARCISO MURPHY on 05/01/20 1529 Prednisone (Prednisone) 20 Mg Tab, 40 MG PO DAILY Prescribed by: RAMON MG on 11/17/20 0107 Prednisone (Prednisone) 20 Mg Tab, 40 MG PO DAILY Prescribed by: LEE DA SILVA on 03/10/21 1243 Simethicone (Simethicone) 80 Mg Tab.chew, 40 MG PO TID PRN for INDIGESTION 2ND LINE Prescribed by: CODY HARDEN on 01/25/19 1036 Review of Systems Constitutional: no symptoms reported, see HPI Musculoskeletal: see HPI, back pain, muscle pain (Left lower extremity); No neck pain All Other Systems Reviewed Negative Unless Noted: Yes Past Tauvvrc-Kqsxjf-Ynpbhl Hx Patient Social History Tobacco Use?: Yes Tobacco type used: Cigars Substance use?: Yes Substance type: Marijuana Pt feels they are or have been: No Seasonal Allergies Seasonal Allergies: No Past Medical History Surgeries: Yes (D&C, cold knife conization) Hysterectomy, Tonsillectomy, Tubal Ligation Respiratory: No Cardiac: Yes Hypertension Neurological: Yes (HX encephalitis, 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) Seizure Disorder, Traumatic Brain Injury Female Reproductive Disorders: Menstrual Problems [employer] History: Hysterectomy, Tubal Ligation Sexually Transmitted Disease: No HIV/AIDS: No Genitourinary: Yes Bladder Infection, UTI-Chronic Gastrointestinal: Yes Chronic Constipation Musculoskeletal: Yes (CHRONIC NECK AND RIGHT SHOULDER PAIN ) Endocrine: No HEENT: No (EDENTULOUS) Loss of Vision: Denies Hearing Impairment: Denies Cancer: No Psychosocial: Yes (SUBSTANCE ABUSE) Anxiety Integumentary: No Blood Disorders: No Adverse Reaction/Blood Tranf: No (N/A) Family Medical History Reviewed Nursing Family Hx Alcoholism 19 FATHER 19 MOTHER G8 BROTHER Drug abuse 19 FATHER Hypertension 19 FATHER Myocardial infarction 19 FATHER Physical Exam Vital Signs Vital Signs - First Documented 03/10/21 03/10/21 11:31 12:50 Temp 36.5 Pulse 100 Resp 18 B/P (MAP) 140/113 (122) Pulse Ox 14 O2 Delivery Room Air Capillary Refill : Less Than 3 Seconds Height, Weight, BMI Height: 5'8.00" Weight: 173lbs. 0.0oz. [id number]; 24.00 BMI Method:Stated General Appearance: WD/WN, mild distress (Secondary to pain) Neck: non-tender, full range of motion, supple, normal inspection Cardiovascular: normal peripheral pulses, regular rate, rhythm, no edema Respiratory: chest non-tender, lungs clear, normal breath sounds Gastrointestinal: normal bowel sounds, non tender, soft Back: normal inspection, no CVA tenderness, no vertebral tenderness; No decreased range of motion, No vertebral tenderness Hips: bilateral hip non-tender, bilateral hip normal inspection, bilateral hip normal range of motion, bilateral hip no evidence of injury Legs: right leg non-tender; bilateral leg normal inspection, bilateral leg normal range of motion; left leg soft tissue tenderness (Lateral thigh); bilateral leg other (Negative Homans bilaterally) Knees: bilateral knee non-tender, bilateral knee normal inspection, bilateral knee normal range of motion Ankles: bilateral ankle non-tender, bilateral ankle normal inspection, bilateral ankle normal range of motion Neurologic/Tendon: normal sensation, normal motor functions, normal tendon functions Neurologic/Psychiatric: no motor/sensory deficits, alert, normal mood/affect, oriented x 3 Skin: normal color, warm/dry Progress/Results/Core Measures Results/Orders My Orders Orders - LEE DA SILVA Ketorolac Injection (Toradol Injection) (03/10/21 11:56) Orphenadrine Inj (Ed Only) (Norflex Inje (03/10/21 11:56) Lumbar Spine - 2-3 Views (03/10/21 11:56) Vital Signs/I&O 03/10/21 03/10/21 11:31 12:50 Temp 36.5 Pulse 100 100 Resp 18 18 B/P (MAP) 140/113 (122) 175/111 Pulse Ox 14 98 O2 Delivery Room Air Blood Pressure Mean: 122 Diagnostic Imaging Diagonstic Imaging: Xray Plain Films/CT/US/NM/MRI: other (L Spine) Comments NAME: YULY RIZZO [facility] REC#: [id number] PT STATUS: REG ER : 1975 PHYSICIAN: LEE DA SILVA EXTENSION SERVICE SPECIALIST ADMIT DATE: 03/10/21/ER Signed Date of Exam:03/10/21 LUMBAR SPINE - 2-3 VIEWS INDICATION: Low back pain. COMPARISON: None available. TECHNIQUE: 3 views of the lumbosacral spine. FINDINGS: Mild straightening of lumbar spine. No spondylolisthesis. Vertebral bodies are normal in stature without fracture. No ankylosis within the vertebrae or SI joints. Focally advanced degenerative disc disease at L5-S1. 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 IMPRESSION: 1. No acute osseous abnormality in the lumbar spine. 2. Focally advanced degenerative disc disease at L5-S1. Dictated by: Dictated on workstation # [id number] Dict: 03/10/211223 Trans: 03/10/211226 CV [id number] Interpreted by: TUAN DISLA MD Electronically signed by: TUAN DISLA MD 03/10/211226 Reviewed: Reviewed by Me Departure Impression Primary Impression: Sciatica, left side Additional Impressions: Left leg pain Degenerative disc disease at L5-S1 level Disposition: 01 HOME, SELF-CARE Condition: Improved Departure-Patient Inst. Decision time for Depature: 12:35 Referrals: [facility] (PCP) Primary Care Physician GIANLUCA BALES (Family) Primary Care Physician Patient Instructions: Sciatica (DC) Add. Discharge Instructions: Alternate heat and ice to your low back and left leg. Alternate between ibuprofen 650 mg and ibuprofen 800 mg, every 4 hours. Take the Prednisone, as prescribed. Use Flexeril for muscle spasms. Follow-up with your primary care provider at [facility] or go to walk-in if symptoms are not improving or worsen. Return to the emergency department for new, urgent healthcare needs. All discharge instructions reviewed with patient and/or family. Voiced u nderstanding. Scripts Prednisone (Prednisone) 20 Mg Tab 40 MG PO DAILY, #6 TAB 0 Refills Prov: LEE DA SILVA 03/10/21 Cyclobenzaprine HCl (Cyclobenzaprine HCl) 10 Mg Tablet 10 MG PO Q8H PRN for SPASMS, #15 TAB 0 Refills Prov: LEE DA SILVA 03/10/21 LEE DA SILVA Mar 10, 2021 12:29
[2021-03-10] MEDS ORDERED: CYCL10TA9 PO (12:43)
[2021-03-10] MEDS ORDERED: PRD20T PO (12:43)
[2021-03-10 12:50] VITALS: BP 175/111
== END 2021-03-10 12:50 | disposition home or self-care (01) ==
LOC: EDUNIT# 11:17 → ER 11:19
DX: M54.32 Sciatica, left side (principal); M51.37 Other intervertebral disc degeneration, lumbosacral region; M79.605 Pain in left leg; I10 Essential (primary) hypertension; Z72.0 Tobacco use; Z87.820 Personal history of traumatic brain injury
CPT/HCPCS: 72100